=== PATIENT | female | born 1980 | race Caucasian/White ===

== ENCOUNTER → 2021-03-12 | Outpatient (CLI) | payer OTHER ==
[2021-03-12 12:17] LABS: HEMOGLOBIN 12.9 gm/dl (12.3-15.3); RED BLOOD COUNT 4.24 M/UL (4.00-5.10); WHITE BLOOD COUNT 7.6 K/UL (4.5-11.0)
[2021-03-12 12:35] LABS: BUN/CREATININE RATIO 27 (0-10)
[2021-03-13 11:15] LABS: COMPLEMENT C3, SERUM 207 mg/dL (82-167); COMPLEMENT C4, SERUM 56 mg/dL (12-38)
[2021-03-14 17:08] LABS: DSDNA CRITHIDIA LUCILIAE IFA Negative (Negative)
== END ==
LOC: LAB 10:16
PROVIDERS: Internal Medicine
DX: M25.562 Pain in left knee (principal); M25.561 Pain in right knee; M35.9 Systemic involvement of connective tissue, unspecified; R79.82 Elevated C-reactive protein (CRP); R70.0 Elevated erythrocyte sedimentation rate; M17.11 Unilateral primary osteoarthritis, right knee
CPT/HCPCS: 36415; 73560; 80053; 81001; 82570; 83520; 84156; 85025; 86160; 86162; 86255